=== PATIENT | female | born 1970 | race Caucasian/White ===

== ENCOUNTER 2016-08-08 06:58 | Inpatient (IN) | payer BC ==
--- NOTE | ~2016-08-08 | DS ---
Unit #: [id number] #: [id number] Patient: JOEMAY [id number] [address] [address] [id number] I MR#: [id number] NAME: JOE CARVAJAL ROOM: 457 Age: 46 Sex: F Admission Date: 08/08/2016 : 1970 Discharge Date: 08/10/2016 Attending Physician: Kevin Gonzalez M.D. Primary Care Physician: No Primary Care Physician DISCHARGE SUMMARY ADMITTING DIAGNOSIS Left ulna and radial head fracture. DISCHARGE DIAGNOSIS Left ulna and radial head fracture, status post open reduction internal fixation left ulna fracture and radial head replacement. SECONDARY DIAGNOSES 1. Seasonal allergies. 2. Gastroesophageal reflux disease. ATTENDING Dr. Gonzalez, Orthopedic Surgery. PROCEDURE On August 08, 2016, the patient underwent an ORIF left ulna fracture and radial head replacement. Please see operative report for further details. BRIEF HISTORY Ms. Carvajal is a 46-year-old female who was referred to our office by Dr. Colorado for a left ulna fracture as well as a radial head fracture. Upon reviewing her x-rays, Dr. Gonzalez recommended an ORIF of her left ulna fracture as well as ORIF of the radial head fracture versus a radial head replacement. The risks, benefits, and alternatives were discussed with the patient and she elected to proceed with surgery on August 08, 2016. HOSPITAL COURSE On the night of surgery, the patient was transferred to the orthopedic unit for postoperative care. She remained stable overnight. Postop x-rays of the left elbow showed that she was status post ORIF left ulna fracture and radial head replacement. Hardware remained in correct anatomical alignment with no evidence of loosening or migration. On postop day #2, the patient's vital signs remained stable. She was awake, alert, and oriented x3 in no acute distress. Her pain was uncontrolled on her current pain medication regimen. Pain medication was then increased which provided her with better pain control. Her left upper extremity was in a posterior splint. The splint was clean, dry, and intact. She was able to move all five digits. Her fingers were warm and well perfused and she had normal sensation to light touch in all five digits. Her white blood cell count was 10.8 and hemoglobin was 11.2. Physical therapy attempted to work with the patient but she was already ambulating in the room without any assistance and had family at home to help with care so she declined any physical therapy. She remained Unit #: [id number] #: [id number] Patient: JOE nonweightbearing of the left upper extremity in her splint. She was on aspirin and SCDs for DVT prophylaxis. On postop day #2, the patient's pain had significantly improved and she felt that she was ready to discharge home. She was afebrile and her vital signs were stable. She was awake, alert, and oriented x3 and in no acute distress. Her left upper extremity remained in a posterior splint which was clean, dry, and intact. She had moderate swelling in the left hand and fingers. She was able to move all five digits and was neurovascularly intact to the median, ulna, and radial nerves. She had normal sensation to light touch in all five digits. Her fingers were warm and well perfused. Her white blood cell count was 11.3 and hemoglobin was 10.4. She remained nonweightbearing of the left upper extremity and in her splint. At this time, we will plan for discharge home. CONDITION AT DISCHARGE Stable. DISPOSITION The patient will be discharged home where she has family to help with postoperative care. DISCHARGE MEDICATIONS 1. Zyrtec 10 mg p.o. daily. 2. Benadryl 12.5 mg p.o. daily as needed for allergy symptoms. 3. Phenergan 25 mg p.o. q.6 hours as needed for nausea. 4. Percocet 5/325 mg one to two tabs p.o. q.4 hours as needed for pain. 5. Probiotic two tabs p.o. daily. 6. Prilosec 20 mg p.o. daily. 7. Flexeril 10 mg p.o. t.i.d. The patient was sent home with a prescription for Percocet to dispense 65 tabs. DISCHARGE INSTRUCTIONS 1. The patient will be discharged home. 2. She will follow with Dr. Gonzalez in two weeks' time. 3. She will remain nonweightbearing of the left upper extremity in her splint. 4. She may use a sling as needed for comfort. 5. She is to work on left hand and finger range of motion two to three times daily. 6. She is to ice and elevate the left upper extremity. 7. She may shower but she is not to get her splint wet. She must keep an occlusive dressing over the splint when showering. Dictated by... William Bui APRN for [facility] Cui TD: 08/10/2016 12:34 JOB #: [id number] Unit #: [id number] #: [id number] Patient: JOE DISCHARGE SUMMARY Page 1 of 1 X WILLIAM BUI APRN X DISCHARGE SUMMARY
--- NOTE | ~2016-08-08 | CR93 ---
[facility] A Service of [facility] & [facility] RADIOLOGY TEXT RESULTS PATIENT: JOEMAY LOCATION: [facility] 457-01 : 74 UNIT #: [id number] AGE: [address]: Kevin Gonzalez MD SEX: F ORDER DR: [id number] [facility] [address] [place], [place] [address] [id number] I MR#: [id number] Acc #: [id number] NAME: JOE MAY : 1970 SEX: F STUDY DATE/TIME: 08/08/2016 12:49 UNIT: C4 ROOM: 455 STUDY DESCRIPTION: CR Elbow Min 3 Views Lt Attending Physician: Kevin Gonzalez M.D. Ordering Physician: Kevin Gonzalez M.D. MEDICAL IMAGING REPORT This report is preliminary unless electronic signature is present EXAM Left elbow series dated 08/08/2016 COMPARISON Left elbow series dated 08/05/2016 HISTORY Postop surgical changes in the left elbow for reducing fracture. Followup. FINDINGS 16 intraoperative fluoroscopy views of the left elbow were obtained. Previously noted comminuted displaced fracture of the proximal ulnar shaft and the radial head are seen. There is internal fixation with plate and screws of the proximal ulnar fracture with near anatomical alignment. The radial head and neck has been replaced with a metallic prosthesis which extends into the shaft. Near anatomical alignment is seen. There is adjacent soft tissue swelling present. Fluoroscopy time was 1.0 minutes. Refer to the operative note. Dictated by... Tian Arias M.D. THIS IS AN ELECTRONICALLY VERIFIED REPORT Tian Arias M.D. at 08/09/2016 2:24 PM CPR/pcl TD: 08/08/2016 20:38 JOB #: [id number] MEDICAL IMAGING REPORT Page 1 of 1 COPY
--- NOTE | ~2016-08-08 | OR ---
Unit #: [id number] #: [id number] Patient: RADHA DIAZ [id number] [address] [address] [id number] I MR#: [id number] NAME: RADHA DIAZ ROOM: 457 Date of Procedure: 08/08/2016 Admission Date: 08/08/2016 Surgeon: Kevin Gonzalez M.D. : 1970 Attending Physician: Kevin Gonzalez M.D. Primary Care Physician: Primary Care Physician No OPERATIVE REPORT PREOPERATIVE DIAGNOSES 1. Complex left proximal ulna fracture, Monteggia variant. 2. Left comminuted radial head and neck fracture. POSTOPERATIVE DIAGNOSES 1. Complex left proximal ulna fracture, Monteggia variant. 2. Left comminuted radial head and neck fracture. PROCEDURES PERFORMED 1. Open reduction and internal fixation of left proximal ulna Monteggia variant fracture. 2. Left radial head replacement. IMPLANTS 1. [employer] large ALPS olecranon plate. 2. [employer] ExploR radial head, size 8 stem, with a 20 mm head and 10 mm height. SHUTTLE FILLER Ksenia Batista APRN, RNFA. ANESTHESIA General with regional nerve block. ESTIMATED BLOOD LOSS 50 mL. TOURNIQUET TIME 2 hours. COMPLICATIONS None apparent. INDICATIONS Radha is a 46-year-old female who sustained a complex injury to her left elbow in a ground level fall. She was initially seen in [place], and then transferred to our office for further definitive surgical management. She had a complex proximal ulna fracture, which was a Monteggia variant type fracture. It showed there was associated coronoid fracture as well and given her associated radial head and neck fracture. This is also somewhat circulation sales representative of a terrible triad injury and may in fact represent a transolecranon fracture dislocation. The nature of the injury was reviewed with the patient and family. We discussed the open reduction Unit #: [id number] #: [id number] Patient: RADHA DIAZ and internal fixation of the olecranon fracture with ORIF versus radial head replacement for radius. Risks, benefits, and alternatives were reviewed. She elected to proceed. DESCRIPTION OF PROCEDURE The patient was identified in the preoperative holding area. Operative site was marked. A regional anesthetic block was performed. Preoperative antibiotics were administered. The patient was brought to the operating room and placed supine on the operating table. A general anesthetic was induced. The patient was positioned supine on the OR table with the arm across the chest on a nonsterile padded Polanco for fixation of the olecranon and then down laterally on a radiolucent hand table for fixation of the radial head and neck fracture. The arm was prepped and draped in sterile fashion after application of a nonsterile upper arm tourniquet. The arm was exsanguinated and tourniquet was inflated. A standard longitudinal midline posterior incision was performed curving radially around the tip of the olecranon. Dissection was carried down through the subcutaneous tissues. There was immediately a high-grade soft-tissue injury encountered. There was disruption of the deeper soft tissue with even muscular injury over the site of the ulna fracture. There was easy dissection directly down to the fracture site. This was extended distally to the intact distal shaft segment. The proximal shaft segment was identified as well and dissected. There was a comminuted fragment out along the lateral cortex. This was exposed taking care to avoid complete soft tissue stripping of this fragment. We were able to reduce this small amount of butterfly fragment back to the distal shaft and then plan for the disposition of the large olecranon fragment as well. The more volar fragment was a large coronoid type fracture, this was widely displaced. Dissection was carried around the medial aspect of the ulna to mobilize this fragment. This was eventually reduced utilizing a Joystick K-wire and Hohmann's position in the desired location. The fracture was provisionally fixed with multiple K-wires. The plate of the desired size was selected and then it secured to the proximal fragment again with K-wires. We then secured this distally to the larger shaft segment. Once we had the plate as secured, the fracture was assessed under C-arm imaging. Again, the large coronoid fragment on the anterior volar aspect continued to give us difficulty with maintaining this in a reduced position. This was ultimately held with a Hohmann, and drilled, and we placed a nonlocking fully-threaded cortical screw into this fragment. This stabilized and help reduce this fragment back to the plate. The screw did end up long as the screw was initially reduction screw; however, given the difficulty with placing the screw, we elected to leave this screw in this position rather than tried to change this out for a shorter screw. We ultimately took two screw fixation of the large coronoid fragment. The fixation was then completed with combination of locking and nonlocking screws. The final images were obtained and demonstrated a near anatomic reduction with satisfactory placement of the hardware. There was still a nonunited coronoid tip fracture. Attention was then turned to the radial head. The lateral soft tissue flap was elevated. Dissection carried up to the lateral epicondyle. A split was made between the triceps and anterior soft tissue along the lateral supracondylar ridge. This was carried down to the Cutris interval over the radial head. Dissection was carried down to the annular ligament, which was divided and preserved as a separate layer. The radial neck was then exposed. There was a highly comminuted radial head fracture identified. The radial head itself was assessed. One small comminuted Unit #: [id number] #: [id number] Patient: fragment was removed. There were two larger articular segments, which we were able to pin and stabilize reconstructing the articular surface. However, the neck itself was highly comminuted. We inspected this and consider trying to plate this with a pre-contoured radial neck plate. However, there was sufficient bone loss along the metaphyseal region, so this was not suitable for fixation. There was high risk for avascular necrosis as well as the articular segment as it was stripped along the soft tissue. It was felt this was a high risk for nonunion, and we therefore elected to proceed with a radial head replacement. The articular fragments were excised. The canal was then opened and reamed and broached up to a size 7. We trialed off this. After removing our trial, re-broached up to a size 8. We implanted a size 8, which had good rotational stability. We placed the size 20 head with the shortest neck height. The elbow was then taken through a range of motion in full extension. She was unstable and dislocated. At this point, we did not have access to the coronoid tip fragment. It was felt that this was likely due to a combination of the open approach in the lateral aspect of the elbow as well as the approach medially to the coronoid fragment, which likely compromised the UCL insertion. With the elbow in a flexed position, the elbow was stable and concentrically reduced. Pronation of the wrist was not required. Decision was made to keep her splinted and not to pursue any other ligamentous repair. The wound was then irrigated. The common extensors were repaired back as the lateral elbow arthrotomy was closed. The annular ligament was closed in separate layer. The fascia overlying the ulna plate was repaired. We then closed this with 2-0 Vicryl and michael in the skin. The elbow was taken through range of motion and was stable. This was again examined under fluoroscopy at the conclusion of closure. A well-padded posterior splint was applied and a final image was taken of the elbow to ensure that she left the operating room with the elbow on a reduced position. DISPOSITION Stable to the recovery room. Dictated by... Clover Cui/derek TD: 08/10/2016 06:23 JOB #: [id number] OPERATIVE REPORT Page 1 of 1 X Kevin Gonzalez MD X PROCEDURE OPERATIVE NOTE
--- NOTE | ~2016-08-08 | EKG ---
PATIENT: JOEMay UNIT #: [id number] Ventricular Rate: 104 BPM Atrial Rate: 104 BPM P-R Interval: 122 ms QRS Duration: 74 ms Q-T Interval: 326 ms QTC Calculation(Bezet): 428 ms P [place]: 45 degrees Calculated R [place]: 10 degrees Calculated T [place]: 34 degrees Diagnosis Line: Sinus tachycardia Diagnosis Line: Nonspecific T wave abnormality Diagnosis Line: Abnormal ECG Diagnosis Line: No previous ECGs available Diagnosis Line: Confirmed by PASQUALE TAYLOR MD ([id number]) on Diagnosis Line: 08/08/2016 11:12:53 AM INTERPRETING MD: NATALIA
--- NOTE | ~2016-08-08 | CR87 ---
[facility] A Service of [facility] & [facility] RADIOLOGY TEXT RESULTS PATIENT: JOEMAY LOCATION: [facility] 457-01 : [birth year] UNIT #: [id number] AGE: [address]: Kevin Gonzalez MD SEX: F ORDER DR: [id number] [facility] [address] [place], [place] [address] [id number] I MR#: [id number] Acc #: [id number] NAME: JOE MAY : 1970 SEX: F STUDY DATE/TIME: 08/08/2016 16:36 UNIT: [facility] ROOM: 455 STUDY DESCRIPTION: CR Elbow 1 View Lt Attending Physician: Kevin Gonzalez M.D. Ordering Physician: Kevin Gonzalez M.D. Primary Care Physician: No Primary Care Physician MEDICAL IMAGING REPORT This report is preliminary unless electronic signature is present EXAM Single view of the left elbow INDICATIONS Postop left elbow surgery. Initial exam. COMPARISON STUDIES Comparison with intraoperative radiographs from earlier today. FINDINGS There has been plate and screw fixation of a comminuted fracture of the proximal ulna and there is a radial head prosthesis. The alignment on this lateral view is normal. Hardware appears to be intact. An elbow joint effusion is noted. IMPRESSION Postoperative changes as described. The alignment on this lateral view appears normal. Dictated by... Dexter Ye M.D. THIS IS AN ELECTRONICALLY VERIFIED REPORT Dexter Ye M.D. at 08/09/2016 7:24 PM Ricardo TD: 08/08/2016 18:29 JOB #: [id number] MEDICAL IMAGING REPORT Page 1 of 1 COPY
[2016-08-08] MEDS ORDERED: FLEXERIL10 MG PO (07:55)
[2016-08-08] MEDS ORDERED: ZYRTEC10 M1 PO (07:55)
[2016-08-08] MEDS ORDERED: PERCOCET5/325 PO (07:55)
[2016-08-08] MEDS ORDERED: PHENERGAN PO (07:56)
[2016-08-08] MEDS ORDERED: PRILOSEC PO (08:10)
[2016-08-08] MEDS ORDERED: PROBIOTIC1 EAC2 PO (08:11)
[2016-08-08] MEDS ORDERED: BENADRYL PO (08:13)
[2016-08-09 03:01] LABS: BASOPHIL# 0.1 X10e3 (0-0.3); BASOPHIL% 0.7 % (0-2.5); EOSINOPHIL# 0.1 X10e3 (0-0.7); EOSINOPHIL% 1.1 % (0.0-7.0); HEMATOCRIT 33.1 % (35.0-45.0); HEMOGLOBIN 11.2 gm/dL (12.0-16.0); LYMPHOCYTE# 1.3 X10e3 (1.0-3.5); LYMPHOCYTE% 12.5 % (17.0-45.0); MEAN CELL VOLUME 87.6 FL (83-96); MEAN CORPUSCULAR HEMOGLOBIN 29.5 PG (28-34); MEAN CORPUSCULAR HGB CONC 33.7 g/dL (30-36); MEAN PLATELET VOLUME 7.2 FL (6.5-11.5); MONOCYTE# 0.9 X10e3 (0-1.0); MONOCYTE% 8.8 % (3.0-12.0); NEUTROPHIL# 8.3 X10e3 (1.5-7.1); NEUTROPHIL% 76.9 % (40-75); PLATELET COUNT 265 X10e3 (140-420); RED BLOOD COUNT 3.78 X10e (3.90-5.30); WHITE BLOOD COUNT 10.8 X10e3 (4.0-10.5)
[2016-08-09 03:02] LABS: DIFF IND NO
[2016-08-09 03:25] LABS: PROTHROMBIN TIME (PATIENT) 11.2 SECONDS (10.0-11.7)
[2016-08-10 03:17] LABS: BASOPHIL# 0.1 X10e3 (0-0.3); BASOPHIL% 0.5 % (0-2.5); EOSINOPHIL# 0.1 X10e3 (0-0.7); EOSINOPHIL% 1.2 % (0.0-7.0); HEMATOCRIT 31.4 % (35.0-45.0); HEMOGLOBIN 10.4 gm/dL (12.0-16.0); LYMPHOCYTE# 1.6 X10e3 (1.0-3.5); LYMPHOCYTE% 14.5 % (17.0-45.0); MEAN CELL VOLUME 89.1 FL (83-96); MEAN CORPUSCULAR HEMOGLOBIN 29.6 PG (28-34); MEAN CORPUSCULAR HGB CONC 33.2 g/dL (30-36); MEAN PLATELET VOLUME 7.1 FL (6.5-11.5); MONOCYTE# 1.4 X10e3 (0-1.0); MONOCYTE% 12.3 % (3.0-12.0); NEUTROPHIL# 8.1 X10e3 (1.5-7.1); NEUTROPHIL% 71.5 % (40-75); PLATELET COUNT 257 X10e3 (140-420); RED BLOOD COUNT 3.52 X10e (3.90-5.30); RED CELL DISTRIBUTION WIDTH 13.2 % (11.0-15.5); WHITE BLOOD COUNT 11.3 X10e3 (4.0-10.5)
[2016-08-10 03:22] LABS: DIFF IND NO
[2016-08-10 03:35] LABS: INR 1.1; PROTHROMBIN TIME (PATIENT) 12.2 SECONDS (10.0-11.7)
== END 2016-08-10 10:39 | disposition home or self-care (01) | DRG 512 ==
LOC: CSUR 06:58 → CPACUOF 14:26 → CSUR 14:26 → C4B 14:26 → CSUR 14:30 → CPACUOF 15:20 → C4B 17:06 → CPACUOF 17:06 → C4B 08-09 09:37
PROVIDERS: Orthopaedic Surgery
PROC: 0PSL04Z Reposition Left Ulna with Internal Fixation Device, Open Approach (ICD-10-PCS; principal; 2016-08-08 11:00)
PROC: 0PRJ0JZ Replacement of Left Radius with Synthetic Substitute, Open Approach (ICD-10-PCS; 2016-08-08 11:00)
DX: S52.002A Unspecified fracture of upper end of left ulna, initial encounter for closed fracture (principal); J30.2 Other seasonal allergic rhinitis; S52.122A Displaced fracture of head of left radius, initial encounter for closed fracture; K21.9 Gastro-esophageal reflux disease without esophagitis; Z88.0 Allergy status to penicillin; K44.9 Diaphragmatic hernia without obstruction or gangrene
CPT/HCPCS: 73070; 73080; 76001; 82947; 84703; 85025; 85610; 93005; C1713; C1776; J0735; J1170; J2250; J2270; J2405; J2795; J3010; J3370